=== PATIENT | female | born 1965 | race American Indian/Alaskan Native ===

== ENCOUNTER 2016-09-05 08:00 | Outpatient (CLI) | payer OTHER ==
--- NOTE | 2016-09-05 10:40 | Mammography Report ---
BILATERAL DIGITAL DIAGNOSTIC MAMMOGRAM with CAD and LEFT BREAST ULTRASOUND: 09/05/16 CLINICAL: Large tender left breast mass. COMPARISON:10/03/15 FINDINGS: The breasts are heterogeneously dense, which may obscure small masses. The predominant density in the right breast has resolved as the last mammogram in the right breast is negative. Ultrasound of the left breast (including all four quadrants and the retroareolar area) was performed and demonstrated several benign cysts. The largest correlates with the palpable tender lump and measures 3.1 x 2.1 x 2.9 cm. It is located at 11 o'clock 4 cm from the nipple. Several smaller complex cysts and no solid mass. IMPRESSION: A 3.1 cm tender left breast cyst at 11 o'clock. Consider ultrasound-guided cyst aspiration for pain relief. Additional smaller benign cysts of the left breast. Negative right breast. BI-RADS CATEGORY: 2 -- Benign ACR BI-RADS MAMMOGRAPHIC CODES: 0 = Needs additional imaging evaluation; 1 = Negative; 2 = Benign; 3 = Probably benign; 4 = Suspicious; 5 = Malignant; 6 = Known biopsy-proven malignancy COMMENT: 1. Dense breast tissue, i.e., adenosis, fibrocystic changes, etc., may obscure an underlying neoplasm. 2. Approximately 10% of cancers are not detected with mammography. 3. A negative mammography report should not delay biopsy if a clinically suspicious mass is present. COMMENT: Patient follow-up letters are generated by our [employer] application.
== END 2016-09-05 08:01 | disposition home or self-care (01) ==
LOC: US 08:00
PROVIDERS: ATTEND Family Medicine
DX: N60.02 Solitary cyst of left breast (principal); N63 Unspecified lump in breast; N64.4 Mastodynia
CPT/HCPCS: 76641; G0204; 77066

== ENCOUNTER 2018-01-05 08:28 | Outpatient (CLI) | payer OTHER ==
--- NOTE | 2018-01-06 10:39 | Mammography Report ---
BILATERAL DIGITAL SCREENING MAMMOGRAM with CAD : 01/05/18 08:28:00 CLINICAL: Routine screening.History of bilateral cysts. COMPARISON:09/05/16 and 09/30/15 FINDINGS: The breasts are heterogeneously dense, which may obscure small masses.Bilateral circumscribed densities are smaller compared to previous exams and are consistent with benign cysts. No mass, architectural distortion or suspicious calcifications. IMPRESSION: No mammographic evidence of malignancy. BI-RADS CATEGORY: 2 -- Benign RECOMMENDATION: Routine mammographic screening in one year. COMMENT: Patient follow-up letters are generated by our [employer] application.
== END 2018-01-05 08:29 | disposition home or self-care (01) ==
LOC: SPVWC 08:28
PROVIDERS: ATTEND Family Medicine
DX: Z12.31 Encounter for screening mammogram for malignant neoplasm of breast (principal)
CPT/HCPCS: 77067

== ENCOUNTER 2020-11-26 11:11 | Outpatient (CLI) | payer OTHER ==
--- NOTE | 2020-11-26 18:42 | Mammography Report ---
DIGITAL SCREENING MAMMOGRAM WITH CAD, 11/26/2020 INDICATION: Routine screening mammography. TECHNIQUE: Digital bilateral 2D mammography was obtained in the craniocaudal and mediolateral obliq ue projections. This examination was interpreted with the benefit of Computer-Aided Detection analysi s. COMPARISON: 01/05/2018. FINDINGS: Breast Density: There are scattered areas of fibroglandular density. There is no evidence of dominant mass, suspicious calcifications or architectural distortion in eithe r breast. Mild benign-appearing changing nodularity. IMPRESSION: Follow up recommendation: Routine yearly BI-RADS Category 2: Benign. A "normal" or negative report should not discourage follow up or biopsy of a clinically significant f inding. A written summary of these findings will be mailed to the patient. The patient will be entered into a mammography reporting system which will generate a reminder letter for the patient's next appointmen t at the appropriate interval. The [employer] recommends yearly mammograms starting at age 40 and continuing as l [place] as a woman is in good health. Breast MRI is recommended for women with an approximate 20-25% or greater lifetime risk of breast cancer, including women with a strong family history of breast or ova isidra cancer or who have been treated for Hodgkin's disease. Signer Name: Dominik Redmond MD Signed: 11/26/2020 6:38 PM Workstation Name: [employer]
== END 2020-11-26 11:12 | disposition home or self-care (01) ==
LOC: SPVWC 11:11
PROVIDERS: ATTEND Family Medicine
DX: Z12.31 Encounter for screening mammogram for malignant neoplasm of breast (principal); N64.89 Other specified disorders of breast
CPT/HCPCS: 77067